=== PATIENT | male | born 1950 | race Asian ===

== ENCOUNTER → 2024-08-25 | Outpatient (CLI) | payer MEDICARE, MEDICAID, SELFPAY ==
--- NOTE | 2024-08-25 11:00 | XR_ITS ---
Examination: Ultrasound abdominal aorta TECHNIQUE: Grayscale sonographic images abdominal aorta Date and time: August 25, 2024 1051 hours INDICATIONS: Smoking history 50+ years FINDINGS: Transverse dimension proximal aorta 2.1 cm mid aorta 1.6 cm distal aorta 1.3 cm right iliac 0.8 cm left iliac 0.7 cm IMPRESSION: Negative for abdominal aortic aneurysm
== END | disposition home or self-care (01) ==
LOC: CDIM 10:46
PROVIDERS: PCP Physician Assistant; Referring Provider Physician Assistant; Visit Provider Physician Assistant
DX: F17.210 Nicotine dependence, cigarettes, uncomplicated (principal)
CPT/HCPCS: 76770